=== PATIENT | female | born 1960 | race Caucasian/White ===

== ENCOUNTER 2018-10-31 03:08 | Emergency (ER) | payer SELFPAY ==
[~2018-10-31] VITALS: Ht 170.2 cm; Wt 76.8 kg
[~2018-10-31 03:08] MED LIST: ASPI-1182 PO; GLIP5ER PO; LISI40TA4 PO; METF-446 PO
[2018-10-31] MEDS ORDERED: GLIP10 PO (03:31)
[2018-10-31] MEDS ORDERED: HYDR25TA PO (03:31)
[2018-10-31] MEDS ORDERED: RANI150T7 PO (03:31)
[2018-10-31] MEDS ORDERED: COMB5OS OU (03:31)
[2018-10-31] MEDS ORDERED: ATOR40TA28 PO (03:31)
[2018-10-31] MEDS ORDERED: INSU100V SQ (03:31)
[2018-10-31] MEDS ORDERED: CARV6 PO (03:31)
[2018-10-31 03:34] LABS: GLUCOSE,POINT OF CARE 186 MG/DL (70-110)
[2018-10-31] MEDS ORDERED: KETOROLAC TROMETHAMINE 60 MG/2 ML VIAL IM ONE (05:00)
[2018-10-31 05:20] LABS: BASOPHILS % (AUTO) 0.6 % (0.0-2.0); EOSINOPHILS % (AUTO) 2.9 % (1.0-6.0); HEMATOCRIT 38.6 % (36-46); HEMOGLOBIN 13.4 g/dL (12.0-16.0); LYMPHOCYTES # (AUTO) 3.4 K/uL (1.0-4.8); LYMPHOCYTES % (AUTO) 36.1 % (22.0-44.0); MEAN CORPUSCULAR HEMOGLOBIN 27.6 pg (26.0-34.0); MEAN CORPUSCULAR HGB CONC 34.8 G/dL (31.0-37.0); MEAN CORPUSCULAR VOLUME 79 fL (80-100); MONOCYTES # (AUTO) 0.9 K/uL (0.1-1.0); MONOCYTES % (AUTO) 9.6 % (2.0-9.0); NEUTROPHILS # (AUTO) 4.8 K/uL (1.8-7.7); NEUTROPHILS % (AUTO) 50.8 % (40.0-70.0); PLATELET COUNT (AUTO) 430 K/uL (150-450); RED BLOOD CELL COUNT(AUTO) 4.88 MIL/uL (4.00-5.20); RED CELL DISTRIBUTION WIDTH 12.6 % (11.5-14.5)
[2018-10-31 05:26] LABS: CALCIUM, TOTAL 8.5 mg/dL (8.8-10.5); CREATININE 1.5 mg/dL (0.60-1.30); POTASSIUM 3.2 mmol/L (3.5-5.1)
[2018-10-31 05:33] LABS: ALBUMIN 3.5 g/dL (3.4-5.0); BILIRUBIN,TOTAL 0.3 mg/dL (0.1-1.0); TOTAL PROTEIN, SERUM 7.5 g/dL (6.4-8.2)
[2018-10-31] MEDS ORDERED: POTASSIUM CHLORIDE 20 MEQ ER TABLET PO ONE (05:45)
[2018-10-31 06:06] VITALS: BP 136/74
== END 2018-10-31 06:07 | disposition home or self-care (01) ==
LOC: EMS 03:09
DX: E11.40 Type 2 diabetes mellitus with diabetic neuropathy, unspecified (principal); R25.2 Cramp and spasm; E87.6 Hypokalemia; Z79.4 Long term (current) use of insulin; Z79.82 Long term (current) use of aspirin; Z79.899 Other long term (current) drug therapy
CPT/HCPCS: 36415; 80053; 82962; 85025; 96372; 99283; J1885